=== PATIENT | male | born 1960 | race Two or more races ===

== ENCOUNTER → 2024-11-30 | Day surgery (SDC) | payer MEDICAID ==
[2024-11-22 12:18] LABS: Hematocrit 43.8 % (41.0-53.0); Hemoglobin 14.8 g/dL (13.5-17.5); Mean Corpuscular Hemoglobin 30.4 pg (28.0-32.0); Mean Corpuscular Volume 90.4 fL (80.0-100.0); Nucleated Red Blood Cells % 0.0 %
[2024-11-22 12:35] LABS: INR 1.09 (0.9-1.15); Partial Thromboplastin Time 27.9 SEC (24.5-34.5); Prothrombin Time 11.5 sec (9.3-11.8)
[2024-11-22 13:37] LABS: Alanine Aminotransferase 15 U/L (7-40); Albumin 4.3 g/dL (3.2-4.8); Alkaline Phosphatase 97 U/L (46-116); Anion Gap 7 (5-15); BUN/Creatinine Ratio 14.5 (10.0-20.0); Blood Urea Nitrogen 17 mg/dL (9-23); Calcium 9.3 mg/dL (8.7-10.4); Carbon Dioxide 27 mmol/L (20-31); Chloride 105 mmol/L (98-107); Potassium 4.2 mmol/L (3.5-5.1); Sodium 139 mmol/L (136-145); Total Protein 6.8 g/dL (5.7-8.2)
[2024-11-22 13:38] LABS: Bilirubin, Total 0.6 mg/dL (0.2-1.0)
[2024-11-22 13:39] LABS: Glucose 170 mg/dL (74-106)
[~2024-11-30] VITALS: Ht 180.3 cm; Wt 65.8 kg
[~2024-11-30] MED LIST: ASPI81CH59 PO; ATOR10TA52 PO; BUPR-133 PO; CHOL20004 PO; DONE5TAB80 PO; EMPA1TAB PO; HYDR12.59 PO; LOSA-533 PO; METF-370 PO
[2024-11-30] MEDS: MIDAZOLAM HCL 2MG/2ML 2ml VIAL (1mg/ml) ONE (10:50)
[2024-11-30] MEDS: fentaNYL CITRATE 100 MCG/2 ML VL ONE (10:50)
--- NOTE | 2024-11-30 11:05 | DVHNC2 ---
Procedure - DATE OF PROCEDURE: 2024 SURGEON: Shirley Woodson MD REFERRING PROVIDER: Jolie Fall PROCEDURE PERFORMED: 1. Colonoscopy with biopsy with moderate sedation INDICATIONS FOR THE PROCEDURE: The patient presents for outpatient colonoscopy for weight loss, history of intermittent diarrhea and colon cancer screening PRE-PROCEDURE DIAGNOSIS: 1. Colon cancer screening 2. Weight loss 3. Colon cancer screening POSTPROCEDURE DIAGNOSIS 1. Internal and external hemorrhoids 2. Diverticulosis MEDICATIONS USED: 2 mg of Versed IV and 50 mcg of fentanyl IV DETAILS OF THE PROCEDURE: Informed consent was obtained after risks, benefits, and alternatives, were discussed at length with the patient. The patient gave consent to the procedure as well as the medication used for sedation. The patient was placed in the left lateral decubitus position. Digital rectal exam showed internal and external hemorrhoids. An Olympus variable torsion pediatric colonoscope was inserted into the rectum and advanced to the cecum. The cecum was identified by the ileocecal valve and the appendiceal orifice. [place] bowel prep score of 8 was noted. The scope was then withdrawn. There were no large polyps, masses, stri ctures, or arteriovenous malformation seen. Retroflexion showed internal hemorrhoids. More than 6 minutes withdrawal time. The patient tolerated the procedure well. Start time: 10:53 a.m. Cecum time: 10:56 a.m. End time: 11:02 a.m. IMPRESSION: Internal hemorrhoids, small external hemorrhoids and mild diverticulosis normal colonoscopy RECOMMENDATIONS: 1. Follow up in GI clinic for procedure results 2. High-fiber diet 3. Continue current medications 4. Consider other cause of the patient's symptoms and weight loss I WOULD LIKE TO THANK DR. FALL FOR THIS REFERRAL SHIRLEY WOODSON MD Nov 30, 2024 11:05
[2024-11-30 11:06] VITALS: TEMP 97.3; O2SAT 98
[2024-11-30 11:21] VITALS: BP 123/74; PULSE 54; RESP 13; O2SAT 99
== END | disposition home or self-care (01) ==
LOC: GI 08:42
PROVIDERS: ATTEND Specialist
DX: R63.4 Abnormal weight loss (principal); K64.8 Other hemorrhoids; K64.4 Residual hemorrhoidal skin tags; K57.30 Diverticulosis of large intestine without perforation or abscess without bleeding; E11.9 Type 2 diabetes mellitus without complications; E78.00 Pure hypercholesterolemia, unspecified; I10 Essential (primary) hypertension; Z98.890 Other specified postprocedural states; Z79.899 Other long term (current) drug therapy
CPT/HCPCS: 36415; 45378; 80053; 82962; 85025; 85610; 85730; J2250; J3010